=== PATIENT | male | born 1970 | race Caucasian/White ===

== ENCOUNTER 2018-01-10 09:47 | Emergency (ER) | payer OTHER, SELFPAY ==
[2018-01-10 09:49] VITALS: BP 150/97; PULSE 114; RESP 18; TEMP 37.3; O2SAT 90
--- NOTE | 2018-01-10 10:04 | ED.GENADUL_ITS ---
Discharge Plan Disposition Patient Disposition: HOME Condition: Stable Discharge Details Chief Complaint: RespSymp Clinical Impression: Infection, respiratory tract Primary Care Provider: NONE,NONE ED Provider: Kirk Ford Home Meds and New Rx's Prescriptions: New doxycycline hyclate 100 mg capsule 100 mg PO BID Qty: 13 RF: 0 benzonatate 200 mg capsule 200 mg PO TID PRN (Reason: cough) Qty: 30 RF: 0 Discharge Instructions Instructions: Upper Respiratory Infection (ED), Cold Symptoms (ED) Stand Alone Forms: Work Release Referrals: [facility] Emergency Dept. [Outside] (As needed for reassessment or if not improving) Discharge Data Discharge Date/Time-TO BE ENTERED AT DEPARTURE: 01/10/18 10:50 Medical Decision Making Patient presenting to the emergency with chief complaint of cough, and cold symptoms for the past 2 weeks. Patient states over the past couple days he has noticed a slight worsening of his symptoms and change in the sputum. He states sputum/cough used to be clear production now is yellow to green. Patient does not have a primary care provider, is a daily smoker, and works in a refrigerated environment in a factory. Physical exam is consistent with upper respiratory tract infection with some fine crackles heard in bases and mild expiratory wheezing that I mostly attribute to patient's smoking status and illness but given that patient does not have a primary care provider and has noticed worsening symptoms decision was made to place patient on doxycycline. Patient was given DuoNeb treatment and initial dose of doxycycline. Decision not to perform radiological imaging of the chest was made at this time given that I do not have any focal worrisome findings on examination but pneumonia is considered highly considered but I do not feel that radiological imaging of the chest is necessary at this point given that I would place patient on antibiotics regardless given worsening of symptoms. \ Patient was reassessed after nebulizer treatment and did have improvement in lung sounds, no further rhonchi or crackles heard, but still expiratory wheezing. Patient was given albuterol inhaler with spacer and educated on use. after discussion of diagnosis and plan of care patient has no further needs, questions, or concerns and states clear understanding to return to the emergency department for any worsening symptoms. Patient was offered a follow-up with a primary care provider but he stated that he more than likely would not follow up with anybody given that he is otherwise healthy with no medical problems. Patient was informed to call contact care management if he changed his mind. HPI General Mode of arrival: ambulatory . Date/Time Provider Initiated Documentation: 01/10/18 09:50 . Limitations to Documentation: no limitations . Information obtained by: patient and RN notes reviewed . History of Present Illness 47 year old M presents to the emergency department with the chief complaint of Cough, described as moderate, with intensity rated at 4. Quality is described as aching, and is localized to the chest. Patient reports no radiation. Patient started experiencing this week(s) (2) and it has been constant. No relieving factors improve symptom(s), No exacerbating factors reported . Patient notes no other symptoms.. Patient did receive the following treatments prior to arrival, none Related Data Home Medications Medication Instructions Recorded Confirmed benzonatate 200 mg PO TID PRN #30 cap 01/10/18 doxycycline hyclate 100 mg PO BID #13 cap 01/10/18 Previous Rx's Medication Instructions Recorded benzonatate 200 mg PO TID PRN #30 cap 01/10/18 doxycycline hyclate 100 mg PO BID #13 cap 01/10/18 Allergies Allergy/AdvReac Type Severity Reaction Status Date / Time No Known Allergies Allergy Unverified 01/10/18 09:55 General Stated Complaint: RespSymp DARRELL: 3 Review of Systems Constitutional Reports chills, Reports difficulty sleeping (Due to coughing), Reports fatigue, Reports fever(s) and Reports malaise ENT Denies ear discharge, Reports otalgia, Reports nasal congestion, Reports sinus pressure and Reports sore throat Cardiovascular Denies dyspnea Respiratory Reports as per HPI, Reports change in phlegm color, Reports chest congestion, Reports cough, Denies dyspnea and Reports wheezing Musculoskeletal Denies joint swelling Integumentary/Breasts Denies rash Endocrine Reports fatigue Allergic/Immunologic Reports wheezing PFSH Social History Smoking/Tobacco Use Status: Current every day alcohol intake: current alcohol intake frequency: 0-2 drinks per day Alcohol type: beer Exam Const General: cooperative, comfortable and no acute distress Orientation: alert, awake and oriented x3 HENMT Head: normal to inspection Ears: hearing grossly normal bilaterally and TM abnormal with fluid behind the TM bilaterally Face and sinus: normal facial exam and sinuses nontender Mouth: oral mucosae normal Throat: posterior oropharynx normal and tonsils normal Eyes General: appearance normal, both eyes and all related structures Conjunctivae: conjunctivae normal Sclera: sclerae normal Neck Neck: normal visual inspection, full ROM, no lymphadenopathy, meningismus present and no JVD Resp Effort & Inspection: normal respiratory effort, able to speak in complete sentences, cough Quality of cough: actively coughing and not labored Auscultation: crackles (fine) bilaterally in the lower lung soto and wheezes expiratory wheezes (mild) and scattered wheezes Cardio Rate: regular rate Rhythm: regular rhythm Heart Sounds: S1 normal and S2 normal Skin General skin exam: no rashes or lesions noted and dry skin Rashes: no rashes Neuro General: alert, awake, oriented x3 and gait normal Course Vital Signs Temperature 37.3 C 01/10/18 09:49 Pulse 114 H 01/10/18 09:49 Respiratory Rate 18 01/10/18 09:49 Blood Pressure 150/97 H 01/10/18 09:49 Pulse Oximetry 90 L 01/10/18 09:49 Temperature 37.3 C 01/10/18 09:49 Temperature Source Temporal Artery Scan 01/10/18 09:49 Pulse 114 H 01/10/18 09:49 Respiratory Rate 18 01/10/18 09:49 Respiratory Effort Non-Labored 01/10/18 09:54 Blood Pressure 150/97 H 01/10/18 09:49 Blood Pressure Position Sitting 01/10/18 09:49 Pulse Oximetry 90 L 01/10/18 09:49 Oxygen Delivery Method Room Air 01/10/18 09:49 Oxygen Flow Rate 0 01/10/18 09:49 Pain Level 4 01/10/18 09:49
[2018-01-10 10:06] VITALS: PULSE 114; RESP 18; RESP 4; O2SAT 91
[2018-01-10] MEDS: Doxycycline Hyclate 100 MG CAP (10:06)
[2018-01-10] MEDS: Albuterol/Ipratropium 3 ML UPD VIAL (10:06)
[2018-01-10 10:36] VITALS: PULSE 106; RESP 18; RESP 4; O2SAT 93
[2018-01-10] MEDS: Albuterol HFA 8 GM 60 PUFF INH IH (11:04)
[2018-01-10] MEDS: Inhaler, Assist Device 1 EACH MC (11:08)
== END 2018-01-10 10:50 | disposition home or self-care (01) ==
LOC: ER 11:14
PROVIDERS: Emergency Provider Nurse Practitioner Family
DX: J06.9 Acute upper respiratory infection, unspecified (principal); F17.210 Nicotine dependence, cigarettes, uncomplicated
CPT/HCPCS: 94640; 99283; J7620